=== PATIENT | female | born 2000 | race Caucasian/White ===

== ENCOUNTER 2023-05-24 14:25 | Emergency (ER) | payer OTHER, SELFPAY ==
[2023-05-24 15:03] VITALS: BP 124/79; PULSE 81; RESP 16; TEMP 37.5; O2SAT 98; BMI 20.4
--- NOTE | 2023-05-24 15:30 | ED.CHESTPAIN ---
HPI - Chest Pain General Chief Complaint: Chest Pain Stated Complaint: Chest pain Time Seen by Provider: 05/24/23 14:39 History of Present Illness HPI narrative: This 22-year-old female comes in reporting some left anterior chest discomfort that began today. She noticed this upon awakening late this morning. She states that the pain seems worse when taking a deep breath or when doing certain maneuvers. She does not have any nausea, vomiting, lightheadedness, shortness of breath, diaphoresis, or exercise intolerance. She does not have any cardiac risk factors. She does not describe any recent strenuous activity or injury event. Related Data Home Medications Medication Instructions Recorded Confirmed control 1 tab PO DAILY 05/24/23 05/24/23 Previous Rx's Medication Instructions Recorded ketorolac 10 mg tablet 10 mg PO Q8H 5 days #15 tabs 05/24/23 Allergies Allergy/AdvReac Type Severity Reaction Status Date / Time Penicillins Allergy Unknown Verified 05/24/23 15:09 Review of Systems Status of ROS Reports: 10 or more systems reviewed and unremarkable except as noted in History and below Narrative Constitutional: No fevers, no weight gain or loss. Eyes: No discharge. No vision changes. HENT: No congestion, no sore throat, no ear pain. Cardiovascular: No palpitations. Respiratory: No shortness of breath, no wheezes, no cough. Gastrointestinal: No abdominal pain, no vomiting, no diarrhea. Genitourinary: No dysuria, no hematuria. Musculoskeletal: Normal range of motion. Skin: No rashes, no pruritis. Neurological: No dizziness, weakness, sensory change, speech change. Endo/Heme/Allergies: No bruising or bleeding. No polydipsia. Pysch: no suicidality, no anxiety, no insomnia. All other systems reviewed and are negative. Exam Narrative Exam Narrative: Constitutional: Well-developed, well-nourished, no acute distress. HEENT: Normocephalic, atraumatic. Neck: Normal range of motion. Nontender. Supple. Heart: Regular. No murmurs. Normal rate. Intact distal pulses. Lungs: Clear to auscultation. No wheezes, rhonchi, or rales. Chest: This patient has reproducible pain in her left lower anterior ribs when taking a deep breath and palpating in this area. Abdomen: Normal bowel sounds. Nontender. No rebound tenderness. Genitalia: Deferred. Back: No midline tenderness. Normal range of motion. Extremities: Normal range of motion. No injury. Skin: Intact. No rash. Warm. No erythema or pallor. Neurologic: No altered sensation. No weakness. Alert and oriented. Psychiatric: No suicidality. No anxiety or depression. No insomnia. Nursing notes and vitals signs are reviewed. Const Vital Signs, click to edit/add: Vital Signs - 24 hr 05/24/23 15:03 Temperature 99.5 F Pulse Rate [Pulse Oximeter] 81 Respiratory Rate 16 Blood Pressure [Left Upper Arm] 124/79 Pulse Oximetry 98 Oxygen Delivery Method Room Air Course Vital Signs Vital signs: Initial Vital Signs Temperature 99.5 F 05/24/23 15:03 Temperature Source Temporal Artery Scan 05/24/23 15:03 Pulse Rate 81 05/24/23 15:03 Pulse Rhythm Regular 05/24/23 15:03 Pulse Strength 3+ Normal 05/24/23 15:03 Respiratory Rate 16 05/24/23 15:03 Blood Pressure 124/79 05/24/23 15:03 Blood Pressure Mean 94 05/24/23 15:03 Blood Pressure Position Sitting 05/24/23 15:03 Pulse Oximetry 98 05/24/23 15:03 Oxygen Delivery Method Room Air 05/24/23 15:03 Vital Signs Temperature 99.5 F 05/24/23 15:03 Pulse Rate 81 05/24/23 15:03 Respiratory Rate 16 05/24/23 15:03 Blood Pressure 124/79 05/24/23 15:03 Pulse Oximetry 98 05/24/23 15:03 Oxygen Delivery Method Room Air 05/24/23 15:03 Temperature 99.5 F 05/24/23 15:03 Pulse Rate 81 05/24/23 15:03 Respiratory Rate 16 05/24/23 15:03 Blood Pressure 124/79 05/24/23 15:03 Pulse Oximetry 98 05/24/23 15:03 Oxygen Delivery Method Room Air 05/24/23 15:03 MDM - Chest Pain MDM Narrative Medical decision making narrative: This 22-year-old female reports chest discomfort that is clearly reproducible and located in the left lower anterior ribs. I did discuss lab and imaging options which the patient declined in a process of shared decision making. She does not have any cardiac risk factors or signs or symptoms that are suspicious for an internal problem. Most likely this is chest wall pain. The patient is okay to be discharged home and did receive a prescription for Toradol. Discharge Plan Discharge Clinical Impression: Anterior chest wall pain Patient Disposition: Home, Self-Care Condition: Stable Additional Instructions: Take medication as needed and directed. Activity as tolerated. Follow up with MD return if worsening. Prescriptions: New ketorolac 10 mg tablet 10 mg PO Q8H 5 Days Qty: 15 0RF No Action control 1 tab PO DAILY Stand Alone Forms: [employer] Info Instructions
--- NOTE | 2023-05-25 14:37 | ED.NURSE ---
prescription was not transmitted and called today to have the [facility]'s pharmacy to fill the medication.
== END 2023-05-24 16:18 | disposition home or self-care (01) ==
PROVIDERS: Emergency Provider Emergency Medicine Emergency Medical Services
DX: R07.9 Chest pain, unspecified (principal)
CPT/HCPCS: 99284